=== PATIENT | female | born 1980 | race Caucasian/White ===

== ENCOUNTER → 2018-05-10 | Outpatient (CLI) | payer OTHER ==
[2015-03-03 16:50] VITALS: BP 126/83
--- NOTE | 2018-05-10 14:02 | CARD ---
MR#: [id number] Date of Study: 05/10/2018 Ordering Physician: ROXANA CRAWFORD, Referring Physician: ROXANA CRAWFORD Tech: Astrid Walsh RDCS APPROVED REPORT EXAM: Two-dimensional and M-mode echocardiogram with Doppler and color Doppler. Other Information Quality : Good INDICATION Chest Pain 2D DIMENSIONS RVDd2.6 (2.9-3.5cm)Left Atrium(2D)3.5 (1.6-4.0cm) IVSd1.0 (0.7-1.1cm)Aortic Root(2D)2.7 (2.0-3.7cm) LVDd4.6 (3.9-5.9cm)LVOT Diameter2.0 (1.8-2.4cm) PWd1.0 (0.7-1.1cm)LVDs2.9 (2.5-4.0cm) FS (%) 30.0 %SV63.7 ml LVEF(%)60.0 (>50%) Aortic Valve AoV Peak Jean.147.5cm/sAoV VTI31.5cm AO Peak GR.8.7mmHgLVOT Peak Jean.106.6cm/s LVOT VTI 24.76cmAO Mean GR.5mmHg RAIZA (VMAX)2.88bl3SRH (VTI)2.41cm2 Mitral Valve MV E Rhtcggmw81.6cm/sMV DECEL [id number] MV A Oegchvnu26.0cm/sMV YMQ10kl E/A Ratio1.5MVA (PHT)5.09cm2 TDI E/Lateral E'6.6E/Medial E'13.0 Pulmonary Vein S1 Bywlvmic35.2cm/sD2 Qxrachwu81.5cm/s LEFT VENTRICLE The left ventricle is normal size. There is normal left ventricular wall thickness. The left ventricu lar systolic function is normal and the ejection fraction is within normal range. The Ejection Fracti on is 55-60%. There is normal LV segmental wall motion. The left ventricular diastolic function and f illing is normal for age. RIGHT VENTRICLE The right ventricle is normal size. The right ventricular systolic function is normal. ATRIA The left atrium size is normal. The right atrium size is normal. The interatrial septum is intact wit h no evidence for an atrial septal defect or patent foramen ovale as noted on 2-D or Doppler imaging. AORTIC VALVE The aortic valve is normal in structure and function. Doppler and Color Flow revealed no significant aortic regurgitation. There is no significant aortic valvular stenosis. MITRAL VALVE The mitral valve is normal in structure and function. There is no evidence of mitral valve prolapse. There is no mitral valve stenosis. Doppler and Color-flow revealed trace mitral regurgitation. TRICUSPID VALVE The tricuspid valve is normal in structure and function. Doppler and Color Flow revealed no tricuspid valve regurgitation noted. There is no tricuspid valve stenosis. PULMONIC VALVE The pulmonic valve is not well visualized. Doppler and Color Flow revealed no pulmonic valvular regur gitation. There is no pulmonic valvular stenosis. GREAT VESSELS The aortic root is normal in size. The ascending aorta is normal in size. The IVC is normal in size a nd collapses >50% with inspiration. PERICARDIAL EFFUSION There is no evidence of significant pericardial effusion. Critical Notification Critical Value: No <Conclusion> The left ventricular systolic function is normal and the ejection fraction is within normal range. Th e Ejection Fraction is 55-60%. There is normal LV segmental wall motion. Signed by : Paul Perez, Electronically Approved : 05/10/2018 14:01:21
== END | disposition home or self-care (01) ==
LOC: ECHO 13:02
PROVIDERS: ATTEND Registered Nurse
DX: R07.9 Chest pain, unspecified (principal)
CPT/HCPCS: 93306

== ENCOUNTER → 2021-01-13 | Outpatient (CLI) | payer OTHER ==
[2015-03-03 16:50] VITALS: BP 126/83
--- NOTE | 2021-01-13 10:16 | CARD ---
MR#: [id number] Date of Study: 01/13/2021 Ordering Physician: ALYSSA PHILIP, Referring Physician: ALYSSA PHILIP, Tech: Trudy Quiroz [facility] APPROVED REPORT EXAM: Two-dimensional and M-mode echocardiogram with Doppler and color Doppler. Other Information Quality : AverageHR: 64bpm INDICATION Hypertension/HCVD RISK FACTORS Smoking 2D DIMENSIONS RVDd3.4 (2.9-3.5cm)Left Atrium(2D)3.7 (1.6-4.0cm) IVSd0.9 (0.7-1.1cm)Aortic Root(2D)2.9 (2.0-3.7cm) LVDd5.1 (3.9-5.9cm)LVOT Diameter2.0 (1.8-2.4cm) PWd0.9 (0.7-1.1cm)LVDs3.0 (2.5-4.0cm) FS (%) 40.0 %SV85.6 ml LVEF(%)70.4 (>50%) Aortic Valve AoV Peak Jean.140.1cm/sAoV VTI28.1cm AO Peak GR.7.9mmHgLVOT Peak Jean.103.5cm/s LVOT VTI 21.53cmAO Mean GR.4mmHg RAIZA (VMAX)1.26tb8EEY (VTI)2.43cm2 Mitral Valve MV E Faaiqkgi92.5cm/sMV DECEL [id number] MV A Rhntczsw02.0cm/sMV E Mean Gr.2mmHg MV KOX32vhU/A Ratio1.1 MVA (PHT)3.52cm2 TDI E/Lateral E'8.1E/Medial E'9.2 Pulmonary Valve PV Peak Kxfsxpmn127.2cm/sPV Peak Grad.4mmHg Tricuspid Valve TR P. Vgruyknf322rs/sTR Peak Gr.19mmHg Pulmonary Vein S1 Fwjjkezu53.2cm/sD2 Ngyodxos25.4cm/s PVa [id number] LEFT VENTRICLE The left ventricle is normal size. There is normal left ventricular wall thickness. The left ventricu lar systolic function is normal and the ejection fraction is within normal range. The Ejection Fracti on is 50-55%. There is normal LV segmental wall motion. Transmitral Doppler flow pattern is Grade II- pseudonormal filling dynamics. RIGHT VENTRICLE The right ventricle is normal size. There is normal right ventricular wall thickness. The right ventr icular systolic function is normal. ATRIA The left atrium size is normal. The right atrium size is normal. The interatrial septum is intact wit h no evidence for an atrial septal defect or patent foramen ovale as noted on 2-D or Doppler imaging. AORTIC VALVE The aortic valve is normal in structure and function. Doppler and Color Flow revealed no significant aortic regurgitation. There is no significant aortic valvular stenosis. Calculated aortic valve area is 2.46 cm2 with maximum pressure gradient of 9 mmHg and mean pressure gradient of 5 mmHg. MITRAL VALVE The mitral valve is normal in structure and function. There is no evidence of mitral valve prolapse. There is no mitral valve stenosis. Doppler and Color-flow revealed trace mitral regurgitation. TRICUSPID VALVE The tricuspid valve is normal in structure and function. Doppler and Color Flow revealed trace tricus pid regurgitation with an estimated PAP of 22 mmHg. There is no tricuspid valve stenosis. PULMONIC VALVE Doppler and Color Flow revealed trace pulmonic valvular regurgitation. There is no pulmonic valvular stenosis. GREAT VESSELS The aortic root is normal in size. The ascending aorta is normal in size. The IVC is normal in size a nd collapses >50% with inspiration. PERICARDIAL EFFUSION There is no evidence of significant pericardial effusion. Critical Notification Critical Value: No <Conclusion> The left ventricular systolic function is normal and the ejection fraction is within normal range. Th e Ejection Fraction is 50-55%. There is normal LV segmental wall motion. Signed by : Paul Perez, Electronically Approved : 01/13/2021 10:16:09
== END ==
LOC: ECHO 08:01
PROVIDERS: ATTEND Internal Medicine Cardiovascular Disease
DX: I10 Essential (primary) hypertension (principal)
CPT/HCPCS: 93306